=== PATIENT | female | born 1950 | race African-American/Black ===

== ENCOUNTER 2017-05-06 12:16 | Emergency (ER) | payer MEDICARE, MEDICAID ==
[~2017-05-06] VITALS: Ht 170.2 cm; Wt 86.4 kg
[2017-05-06 12:18] VITALS: BP 190/99
[2017-05-06] MEDS ORDERED: HYDROcodone/APAP 5/325 TABLET PO ONE (13:00)
[2017-05-06] MEDS ORDERED: HYDROcodone/APAP 5/325 TABLET ONE (13:06)
[2017-05-06] MEDS ORDERED: AMLO10TA4 PO (13:14)
[2017-05-06] MEDS ORDERED: GABA800T2 PO (13:14)
== END 2017-05-06 13:27 | disposition home or self-care (01) ==
LOC: ED 13:10
DX: S67.192A Crushing injury of right middle finger, initial encounter (principal); X58.XXXA Exposure to other specified factors, initial encounter; Y93.89 Activity, other specified; Y92.410 Unspecified street and highway as the place of occurrence of the external cause; Y99.9 Unspecified external cause status
CPT/HCPCS: 99284